=== PATIENT | male | born 1960 | race Caucasian/White ===

== ENCOUNTER 2017-02-28 13:52 | Emergency (ER) | payer MEDICARE, OTHER ==
[~2017-02-28] VITALS: Ht 180.3 cm; Wt 113.6 kg
[2017-02-28 13:57] VITALS: BP 129/73; PULSE 60; RESP 20; O2SAT 99
[2017-03-01] MEDS ORDERED: OXYC1TAB24 PO (14:55)
== END 2017-02-28 15:26 | disposition left against medical advice (07) ==
LOC: SED 13:52
DX: M54.5 Low back pain (principal); Z53.21 Procedure and treatment not carried out due to patient leaving prior to being seen by health care provider

== ENCOUNTER 2017-03-01 12:08 | Emergency (ER) | payer MEDICARE, OTHER ==
[~2017-03-01] VITALS: Ht 180.3 cm; Wt 113.6 kg
[2017-03-01 12:16] VITALS: BP 131/81; PULSE 65; RESP 16; O2SAT 98
--- NOTE | 2017-03-01 12:27 | ED.REPORT ---
HPI-Back Pain 40 and Over Date of Service Mar 01, 2017 ED Provider: History of Present Illness: 56-year-old male here for back pain. 3 days ago patient fell off his deck that was approximately 5 feet high. He landed on his left hip/left low back. Patient has had back pain since then. Patient has a history of sciatica on the left side, left flare up 1 month ago. Pain feels similar to his sciatica. It radiates down his left leg. Denies numbness or tingling. One month ago he went to [facility] emergency room and they gave him a prescription for oxycodone and Dilaudid in the emergency room. Denies loss of bowel and bladder. Patient has been walking since the fall. His baseline pain as a 4 out of 10, his current pain is 7 out of 10 Nursing Notes Stated Complaint: FELL OFF DECK,BACK AND LEG PAIN Chief Complaint: Back Pain or Injury Nursing Notes Reviewed: Yes Allergies: Coded Allergies: No Known Allergies (Unverified , 02/28/17) Scheduled PRN oxyCODONE-Acetaminophen 5-325 mg (oxyCODONE-Acetaminophen 5-325 mg) 1 Each Tablet 1 TAB PO Q6H PRN PRN For Pain General Time Seen by MD: 12:27 Chief Complaint Lumbar pain Hx Obtained From: Patient Arrived By: Walk-in Sudden in Onset?: Yes Onset Occurred: 3 days ago Symptom Duration: Constant Caused by: Fall from height (5) Location: : Spinal lumbar area Quality: Burning Radiation: : Left leg above knee: Left leg below knee Severity: Current: Pain level 7 out of 10 Severity: Maximum: Pain level 7 out of 10 Recent Healthcare: Recent doctor visit Similar Sx Previous: Yes Past Medical History Past Medical History Notes: sciatica, HTN, GERD Review of Systems Constitutional: Denies: Fever Cardiovascular: Denies: Chest pain GI: Denies: Abdominal pain Male: Denies Dysuria, Denies Flank pain Musculoskeletal: Reports: Back pain, Extremity pain Physical Exam Physical Exam Notes: Patient appears a bit slow to speak, potentially intoxicated. No smell of alcohol on his breath. Patient admits to smoking marijuana earlier this morning Initial Vital Signs Vital Signs (First) Date Time Temp Pulse Resp B/P Pulse Ox O2 Delivery O2 Flow Rate FiO2 03/01/17 12:16 36.7 65 16 131/81 98 Room Air Initial VS: Reviewed, Vital signs normal General/Constitutional: Awake, Alert Respiratory / Chest: Breath sounds NL, Breath sounds = bilat, No respiratory distress, No rales, No rhonchi, No wheezing Cardiovascular: Heart rate NL, Regular rhythm, Heart sounds NL, No murmurs, Peripheral circulation NL Abdomen: Soft, Non-tender, No guarding, No rebound, No distention, No palpable mass, No pulsatile mass Back: Atraumatic Flank / Spine / Paraspinal: Positive: Lumbar paraspinal tend... (Mid), Lumbar spine tender... (Mid) Straight Leg Raise: Positive: Strt leg raise + L 10 deg, Strt leg raise + R 10 deg Significant left lower back tenderness. Ordered bend only about 20. Reduced range of motion with twisting side to side. Patient can move around the gurney although with a grimace on his face. Patellar reflexes 3+ brisk and intact and equal. Bilateral lower extremity strength is equal and strong. Interpretation & Diagnostics Lab Results Interpretation Test 03/01/17 13:48 Urine Opiates Screen Negative Urine Methadone Screen Negative Urine Barbiturates Screen Negative Urine Amphetamines Screen Negative Urine Benzodiazepines Screen Positive Urine Cocaine Metabolite Screen Negative Urine Cannabinoids Screen Positive X-Ray Interpretation Xray Interpretation: PROCEDURE: X-RAY LUMBAR SPINE, 2 OR 3 VIEW INDICATIONS: fall, low back pain TECHNIQUE: 3 views of the lumbar spine were acquired. COMPARISON: None. FINDINGS: Bones: 5 [id number] vertebrae are present. There is mild dextroscoliotic bony alignment centered at L2-3. No definite acute vertebral body compression fractures but there is a mild anterior wedging of T12, likely chronic. No suspicious bony lesions. Moderate disc height reduction is present at L4-5, moderately severe facet osteoarthritis is present from L3 inferiorly, with associated grade 1 anterolisthesis of L5 on S1. Soft tissues: Overlying bowel gas pattern is normal. No suspicious soft tissue calcifications. IMPRESSION: Degenerative changes but no definite acute disease. MR scanning may be warranted given the severity of degeneration and likelihood of spinal and foraminal stenosis. Re-Eval/Medical Decision Med Decision/Clinical Course pain med rx from Frederick Angel DMD 20 on 02/17, 20 on 02/21. PCP Nahed Mack rx clonazepam 1mg 120 on 02/22 120 percocet 120 oxycodone 01/07/17 1 mg Dilaudid IM's pains down to 7 out of 10. He presents requesting more meds. We will do Percocet for home, #7 Discharge & Departure Shift Change Sign-Out Procedures: Results discussed Response to Therapy: Improved Impression: Primary Impression: Lumbosacral strain Encounter type: initial encounter Qualified Code: S39.012A - Strain of muscle, fascia and tendon of lower back, initial encounter Additional Impression: Sciatica of left side Disposition: Home Discharge Condition All VS Reviewed: Yes Condition: Stable Patient Instructions: Sciatica (ED) Additional Instructions: Take ibuprofen 600 mg 2 times a day and Tylenol 1 g 3 times a day for pain. Use Percocet for severe pain do not exceed 1 g of acetaminophen every 8 hours. Rest, frequent changing positions, apply ice and heat to area alternating. Follow up with your PCP as scheduled. Return to ER if severe pain, fevers, lower extremity weakness or loss of bowel or bladder Referrals: NOPCP (PCP) [facility] Nahed Mack MD EDSupervising Provider for APC: Finn Crocker MD, Linnea K ARNP Mar 01, 2017 12:27
--- NOTE | 2017-03-01 13:25 | DRSVH ---
PROCEDURE: X-RAY LUMBAR SPINE, 2 OR 3 VIEW INDICATIONS: fall, low back pain TECHNIQUE: 3 views of the lumbar spine were acquired. COMPARISON: None. FINDINGS: Bones: 5 [id number] vertebrae are present. There is mild dextroscoliotic bony alignment centere d at L2-3. No definite acute vertebral body compression fractures but there is a mild anterior wedgi ng of T12, likely chronic. No suspicious bony lesions. Moderate disc height reduction is present at L4-5, moderately severe facet osteoarthritis is present from L3 inferiorly, with associated grade 1 anterolisthesis of L5 on S1. Soft tissues: Overlying bowel gas pattern is normal. No suspicious soft tissue calcifications. IMPRESSION: Degenerative changes but no definite acute disease. MR scanning may be warranted given t he severity of degeneration and likelihood of spinal and foraminal stenosis. Dictated by: Geraldo Meza M.D. on 03/01/2017 at 13:22 Approved by: Geraldo Meza M.D. on 03/01/2017 at 13:23
[2017-03-01] MEDS ORDERED: HYDROmorphone 1 mg/mL Inj IM ONE (14:25)
[2017-03-01] MEDS ORDERED: OXYC1TAB24 PO (14:55)
== END 2017-03-01 14:56 | disposition home or self-care (01) ==
LOC: SED 12:08
DX: S39.012A Strain of muscle, fascia and tendon of lower back, initial encounter (principal); M54.32 Sciatica, left side; W17.89XA Other fall from one level to another, initial encounter; Y93.89 Activity, other specified; Y92.018 Other place in single-family (private) house as the place of occurrence of the external cause; Y99.8 Other external cause status; I10 Essential (primary) hypertension; K21.9 Gastro-esophageal reflux disease without esophagitis
CPT/HCPCS: 72100; 96372; 99284; G0480; J1170; J1885

== ENCOUNTER 2017-03-05 10:15 | Observation (INO) | payer MEDICARE, OTHER ==
[~2017-03-05] VITALS: Ht 180.3 cm; Wt 109.9 kg
[2017-03-05] VITALS (9 sets, daily range): BP systolic 109–128; BP diastolic 61–69; PULSE 51–60; RESP 12–20; O2SAT 95–98
[~2017-03-05 10:15] MED LIST: OXYC1TAB24 PO
--- NOTE | 2017-03-05 10:24 | ED.REPORT ---
HPI-Chest Pain 40 and Over Date of Service Mar 05, 2017 ED Provider: Dr. Hanna Pt is a 56 y/o male w/ a hx of HTN, HLD, GERD, presenting to the ED c/o non- radiating chest tightness onset last night at 20:00 while he was lying in bed. He c/o associated lightheadedness, generalized weakness, nausea, diarrhea x1 episode, myalgia, mild LUE numbness, bilateral leg pain for 1 week. Pt denies vomiting, diaphoresis. The intensity of his pain waxes and wanes but it remains persistent. He states sitting up exacerbates his pain and lying still relieves it. It is rated 8/10 right now and maximum 10/10. He had a pharmacological stress test at least 5 years ago which was reportedly normal. He has a family history of cardiac disease at about age 50. He smokes 0.5 ppd and denies alcohol. There is no history of PE or DVT, GI bleed. The patient does not take aspirin. Nursing Notes Stated Complaint: TIGHTENING CHEST PAIN,LIGHT HEADED,PAIN/WEAKNESS Chief Complaint: Chest Pain Nursing Notes Reviewed: Yes (Validas not reconciled) Allergies: Coded Allergies: No Known Allergies (Unverified , 02/28/17) Scheduled PRN oxyCODONE-Acetaminophen 5-325 mg (oxyCODONE-Acetaminophen 5-325 mg) 1 Each Tablet 1 TAB PO Q6H PRN PRN For Pain General Time Seen by MD: 10:23 Chief Complaint Chest pressure Hx Obtained From: Patient Arrived By: Walk-in Sudden in Onset?: No Onset Occurred: 9 - 12 hours ago Symptom Duration: Since onset Location: : Substernal Quality: Pressure Radiation: : Does not radiate Severity: Current: Pain level 8 out of 10 Severity: Maximum: Pain level 10 out of 10 Past Medical History Past Medical History Hypertension Hyperlipidemia GERD Anxiety History of sciatica (on opiates) Past Surgical History Bilateral inguinal hernia repair ~2000 Smoking History Current Every Day Smoker Social History Alcohol Use: Denies alcohol use Ambulatory Status Independent Review of Systems Constitutional: Reports: Weakness - generalized, Denies: Chills, Fever Cardiovascular: Reports: Chest pain GI: Reports: Diarrhea, Nausea, Denies: Vomiting Musculoskeletal: Reports: Extremity pain, Myalgia Skin: Denies Diaphoresis Neurologic: Reports: Lightheaded, Numbness, Denies: Focal weakness Complete sys rev & neg: except as marked. Physical Exam Initial Vital Signs Vital Signs (First) Date Time Temp Pulse Resp B/P Pulse Ox O2 Delivery O2 Flow Rate FiO2 03/05/17 10:17 36.6 60 12 128/68 97 Room Air Initial VS: Reviewed, Vital signs normal Head / Eyes: Atraumatic, Normocephalic, PERRL ENT: Mucous membranes moist, Conjunctiva normal, No scleral icterus Neck: Supple, Full range of motion Extremities: Vascular intact, Neuro intact, No swelling Skin: Warm, Dry, No cyanosis Neurologic: Alert, Oriented, Nonfocal Psychiatric: Mood/affect normal, Behavior normal, Normal thought content General/Constitutional: Awake, Alert, No acute distress, Cooperative, Not toxic appearing Respiratory / Chest: Breath sounds NL, Breath sounds = bilat, No respiratory distress, No rales, No rhonchi, No wheezing Cardiovascular: Heart rate NL, Regular rhythm, Heart sounds NL, No murmurs, Peripheral circulation NL Abdomen: Atraumatic, Soft, Non-tender, No guarding, No rebound, No distention, No palpable mass Interpretation & Diagnostics Lab Results Interpretation Result Diagram: 03/05/17 1111 03/05/17 1111 Test 03/05/17 11:11 03/05/17 13:24 White Blood Count 7.5th/mm3 (3.8-10.1) Red Blood Count 4.43mil/mm3 (4.40-5.80) Hemoglobin 14.2g/dL (13.8-17.2) Hematocrit 39.9% (41.0-50.0) Mean Corpuscular Volume 90.1fL (81-100) Mean Corpuscular Hemoglobin 32.1pg (27.0-35.0) Mean Corpuscular Hemoglobin Concent 35.6% (32.0-37.0) Red Cell Distribution Width 12.2% (12.3-15.4) Platelet Count 321bil/L (150-400) Neutrophils (%) (Auto) 64.4% (40-74) Lymphocytes (%) (Auto) 26.5% (14-46) Monocytes (%) (Auto) 7.0% (4-12) Eosinophils (%) (Auto) 1.7% (0-5) Basophils (%) (Auto) 0.3% (0-3) Sodium Level 131mEq/L (134-144) Potassium Level 3.0mEq/L (3.5-5.2) Chloride Level 88mEq/L (97-108) Carbon Dioxide Level 28mmol/L (18-29) Blood Urea Nitrogen 5mg/dL (6-24) Creatinine 0.77mg/dL (0.76-1.27) Estimat Glomerular Filtration Rate 112mL/min (>59) Glucose Level 127mg/dL (60-99) Calcium Level 9.2mg/dL (8.5-10.1) Magnesium Level 1.5mg/dL (1.6-2.6) Total Bilirubin 0.4mg/dL (0.0-1.2) Aspartate Amino Transf (AST/SGOT) 12U/L (0-50) Alanine Aminotransferase (ALT/SGPT) 15U/L (0-44) Alkaline Phosphatase 102U/L (25-150) Total Protein 7.1g/dL (6.4-8.4) Albumin 4.1g/dL (3.4-5.0) Lipase 17U/L (13-60) Hold Champion Top Tube Received (Received) Troponin T < 0.010ug/L (0.0-0.011) Lab Results Interpretation: CBC normal Same pain positive hypokalemia, mild hypomagnesemia Troponin #1 negative #2 negative ECG Interpretation ECG Interpretation: Sinus bradycardia rate 57 Nonspecific T wave flattening and inversion anterolaterally No prior available for comparison Time: 10:49 Interpreted by: ED physician Normal ECG Interpretation: No acute ischemic changes ECG Interpretation: Sinus rhythm rate 52 Nonspecific T wave flattening and inversion anterolaterally Same as prior earlier today Computer is over-reading QT interval prolongation, none to my eyes Time: 14:09 Interpreted by: ED physician Normal ECG Interpretation: No acute ischemic changes, No change from prior ECGs X-Ray Chest Interpretation Chest Xray Interpretation: IMPRESSION: No acute disease Dictated by: Gary Gray M.D. on 03/05/2017 at 11:34 Approved by: Gary Gray M.D. on 03/05/2017 at 11:36 View: Portable, 1 view Interpretation / Wet Read by: Interpret - Radiologist Re-Eval/Medical Decision Med Decision/Clinical Course This is a 56-year-old male who is a smoker, with high blood pressure, high cholesterol, and an extensive family history of heart disease who presents complaining of chest discomfort and tightness started last demise been waxing and waning. It is no pleuritic component. He has no risk factors for DVT/PE. He does report he has had a pharmacological stress test-as he reports he cannot exercise much secondary to his sciatica-but it was more than 10 years ago. The patient clinically appears well, is not diaphoretic and has no findings of heart failure on clinical exam. He also does not have clinical findings of venous thromboembolism. His EKG is T wave flattening, but no acute specific findings. Chest x-ray is normal. Blood work is normal. The patient received aspirin, Nitropaste, and supplied with marked improvement. However his calculated heart score is 4 which is moderate risk, so the plan is observation admission. The patient is also mild hypokalemia, mild hypomagnesemia and received initial potassium and magnesium supplementation in the department. Case discussed with the hospitalist. Source of Hx: Old records Time of Eval: 14:33 Re-Evaluation/Progress Note: Pt rechecked. Informed pt of need for admission for cardiac workup. Pt understands and agrees with plan for admission. All questions addressed. Consultation : Referral / Consult Name: Babak Russo MD Consulted With: Hospitalist Call Returned at: 14:49 Instrument And Control Technician: Will see patient, Agrees with eval, Agrees with plan, Accepts admit Differential Diagnosis: Positive: Chest pain, acute, Negative: Dysrhythmia, Gun shot wound chest, Pneumonia, Pneumothorax, Pulmonary edema, Pulmonary embolism, Stab wound chest Counseled Regarding: Diagnosis, Lab results, Need for admission Discharge & Departure Primary Impression: Chest pain Chest pain type: unspecified Qualified Code: R07.9 - Chest pain, unspecified Additional Impressions: Abnormal EKG Hypokalemia Hypomagnesemia Disposition: ADMITTED TO HOSPITAL Discharge Condition All VS Reviewed: Yes Condition: Improved Referrals: [facility] Scribe Attestation Portions of this note were transcribed by Michael Coleman. I, Dr. Hanna personally performed the history, physical exam and medical decision-making; I reviewed and confirmed the accuracy of the information in the transcribed note. Ayden Hanna MD Mar 05, 2017 10:24 MICHAEL COLEMAN Mar 05, 2017 10:32
[2017-03-05] MEDS ORDERED: Ondansetron 2 mg/mL 2 mL Inj IVPUSH ONE (10:45)
[2017-03-05 11:20] LABS: BASOPHILS % (AUTO) 0.3 % (0-3); EOSINOPHILS % (AUTO) 1.7 % (0-5); Mean Corpuscular Hemoglobin 32.1 pg (27.0-35.0); Mean Corpuscular Volume 90.1 fL (81-100); NEUTROPHILS % (AUTO) 64.4 % (40-74); Platelet Count 321 bil/L (150-400)
[2017-03-05] MEDS ORDERED: Ondansetron 8 mg ODT Tablet PO ONE (11:25)
--- NOTE | 2017-03-05 11:38 | DRSVH ---
PROCEDURE: X-RAY CHEST ONE VIEW, PORTABLE ([id number]) INDICATIONS: CP TECHNIQUE: One view of the chest was acquired. COMPARISON: None. FINDINGS: Surgical changes and devices: None. Lungs and pleura: No pleural effusions or pneumothorax. Lungs are clear. Lung volumes are decrease d. Mediastinum: Mediastinal contours appear normal. Heart size is normal. Bones and chest wall: No suspicious bony lesions. Overlying soft tissues appear unremarkable. IMPRESSION: No acute disease Dictated by: Gary Gray M.D. on 03/05/2017 at 11:34 Approved by: Gary Gray M.D. on 03/05/2017 at 11:36
[2017-03-05 11:59] LABS: TROPONIN T 0.01 ug/L (0.0-0.011)
[2017-03-05] MEDS: HYDROmorphone 0.5 mg/0.5 mL iSecure Syringe IVPUSH PRN ×3 (12:07→16:15)
[2017-03-05 12:10] LABS: Magnesium 1.5 mg/dL (1.6-2.6)
[2017-03-05] MEDS ORDERED: Magnesium Sulf 2 Gm/50mL Water 2 GM in IV Premix 1 EACH IV ONE (12:20)
[2017-03-05] MEDS ORDERED: Potassium Chloride 20 mEq SR Tablet PO ONE (12:20)
[2017-03-05] MEDS ORDERED: Nitroglycerin 2% 1 Gm Ointment TOPICAL SCH (14:35)
[2017-03-05] MEDS ORDERED: HYDROmorphone 1 mg/mL Inj IVPUSH ONE (14:35)
[2017-03-05] MEDS ORDERED: HYDROcodone-APAP 5-325 mg Tablet PO PRN (14:50)
--- NOTE | 2017-03-05 16:30 | NUR ---
Admit Pt arrived on unit from ED alert and oriented X4. LARSON. VS WNL. Pt c/o 12/15 "chest tightness" unrelieved by 0.5mg of Dilaudid given right before transfer. Administered 10mg Jet and will reassess. Med rec completed and MD notified to review patients pain, anx and depression medications. Pt asked this RN to removed nitro paste placed in the ER d/t worsening headache. Pt c/o of mild dizziness and stated that he had diarrhea earlier today. Enteric precautions in place and stool pcr ordered by MD. Nicotine patch placed on left shoulder.
--- NOTE | 2017-03-05 16:37 | PCM.HPMED ---
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 pt was USOH until 8pm last night, pt had regular dinner and was sleeping. suddenly noticed acute severe pressure like chest pain, which woke him up. pt also noticed tingling on three digits of his left hands, 3-5th. no radiation go jaw, back, arms. pt also felt dizzy, and hard to breath. pt check his BP noted 160s, therefor took his meds: Ziac and clonidine, chest pain continued for 2hours and subsided but not entirely. pt also had one episode of diarrhea with intermittent cramps. Pt went to bed around 1am, repeat BP was around 90s. Pt didn't think lowering BP helped ease her chest pain. Pt had intermittent low grade chest pain throughout the night until this AM, decided to come to hospital. pt denied having similar chest pain in the past, had stabbing like pain so had stress test done by PCP 5yrs ago, reportedly normal. pt has significant FHx of premature CAD, father and grandfather had heart attack in their 50s. ED VS 128/68, 60, 12, EKG showed flattened twaves diffusely, no prior EKG to compare, no st/t chg. Labs showed tropx2 negative. otherwise unremarkable. currently pt has chest pain 3/10, dialudid and nitro past eased his pain, denied n/v, abdominal cramps. no dizziness, diaphoresis. Review of Systems: Pertinent positives as noted in history of present illness. All other systems were reviewed and are negative Allergies Coded Allergies: No Known Allergies (Unverified , 02/28/17) Home Medications clonidine 0.1mg qid clonazepam 1mg qid meloxicam for back pain Ziac 10/6.25 qd PMH As described above in history of present illness Surgical History Hernia repair Shoulder and knee surgery Family History Father and grandfather had heart attack in 50s Social History Hx Alcohol Use: No Hx Substance Use: Yes (marijuana) Smoking Status: Current Every Day Smoker Exam Vital Signs Vital Sign - Last Date Time Temp Pulse Resp B/P Pulse Ox O2 Delivery O2 Flow Rate FiO2 03/05/17 13:37 36.7 53 17 117/61 98 Room Air Exam NAD, comfortably laying down on the bed no JVD, MMM, no LAD RRR, nl s1, s2 no mrg CTAB, no w,c S,ND,NT,normoactive BS+ warm, no edema, pulses 2/2 Lab and Diagnostics Result Diagram: 03/05/17 1111 03/05/17 1111 Assessment & Plan Acute, active Sudden onset chest pain, POA, EKG did not show ischemic changes, trops are already negative 2. unlikely angina, possible panic attack likely episode given stress, underlying anxiety d/o. However, given premature FHx, active smoking, HTN, HLD, pt has moderate to high risks of ACS. pt was loaded with aspirin in ED -will trend tropx2, -nitro SL for chest pain, -will continue aspirin 81mg daily, metoprolol 25mg bid, no statin given intolerability -stress test ordered for risk stratification one episode of diarrhea, electrolytes imbalance, POA, repleted K,Mg in ED, -trending CMP, replete K,Mg as needed, get stool samples if further diarrhea Chronic, stable chronic lumbar DJD, pt was seen by pain specialist, had multiple injection but didn't improve his pain much, currently on disability, tried percocet in the past, "asked for dilaudid", unclear pt has drug seeking habit, will monitor closely. HTN, hold off home BP med HLD, pt cannot tolerate stains, continue diet control, get lipid panel active tobacco dependence, ordered nicotine patch anxiety d/o, will continue clonidine, clonazepam once med rec done. Dispo: Patient is admitted under observation status with expectation that she will be discharged within 24-48 hours, diet:general dvt ppx:HSQ DNR,DNI confirmed with patient PCP: scheduled in [facility] clinic 03/18, needs new PCP Time spent 65 minutes Babak Russo MD Mar 05, 2017 14:51
[2017-03-05] MEDS ORDERED: KLO1T PO (17:16)
[2017-03-05] MEDS ORDERED: BISO1TAB7 PO (17:16)
[2017-03-05] MEDS ORDERED: OMEP40CA36 PO (17:16)
[2017-03-05] MEDS ORDERED: OXYC-466 PO (17:16)
[2017-03-05] MEDS ORDERED: SERT100T9 PO (17:16)
[2017-03-05] MEDS ORDERED: MELO-259 PO (17:16)
[2017-03-05] MEDS ORDERED: CLON0.1T PO (17:16)
--- NOTE | 2017-03-05 18:12 | NUR ---
PETER explained and signed. Copy of PETER and Medicare self administered medication information given to pt.
--- NOTE | 2017-03-05 18:25 | NUR ---
Assumed care This RN assumed care of pt at 1610. Pt sitting up in bed, eating dinner with no c/o or indicators of pain/distress. Per report, Nitro patch dc'd at 1630. Bed in lowest, locked position and call light in reach.
[2017-03-05] MEDS ORDERED: oxyCODONE-Acetamin 5-325 mg Tablet PO PRN (19:00)
[2017-03-05] MEDS: cloNIDine 0.1 mg Tablet PO SCH (20:50)
[2017-03-05] MEDS ORDERED: Isosorbide Mononitrate 30 mg ER24 Tablet PO ONE (21:30)
[2017-03-05] MEDS ORDERED: Donnatal-Lido-Mylant 1:1:1 15 mL Syringe PO PRN (21:35)
[2017-03-05] MEDS ORDERED: LidocaineVisc 2%:Antacid 1:1 10 mL Syringe PO PRN (21:40)
--- NOTE | 2017-03-05 23:00 | NUR ---
Chest Pressure Around 2049, Pt c/o chest pressure 8/10, as well as generalized pain,maxx on back, pt states chest pressure constantly since admission, 10/10 on admission, lowest level 3/10, no radiation,sometimes triggered by exertion,sometimes occurs when rest, with some SOB and heart burn, chest pressure does not radiate, denies diaphoresis, or nausea, vomiting. BP115/68 HR 54. Charge nurse informed, Stat EKG ordered, report "Sinus Rhythm, HR 55, Prolonged QT". Dr. Davy pineda, EKG report informed to MD. O2 1l used, pt informed bedrest at this time. Plan to given Nitro SL. Pt states unable to tolerated Nitroglycerin SL or Oint due to causing pounding headache. Morphine given 1mgx2, " take the edge" of the chest pressure and SOB. Imdur ER (MD informed pt scheduled stress test tomorrow, ok to use Imdur) and GI Cocktail ordered and administered, chest pressure and generalized pain down to 5-6/10, offer pt [place] for additional symptoms control, pt declines due to [place] "did not do anything". Pt would like to wait for Morphine q4h prn next time due around 99. Continue monitoring closely. Addendum: 03/06/17 at 0538 by RAEANN NOVA RN Pt wake up c/o chest pressure and back pain 02/14, Percocet (10) given 1 hr ago,symptoms "has not improved yet", c/o nausea. Dr Davy pineda at 0535, Reglan 5mg IV ordered will administer now,as well as administer Morphine. Addendum: 03/06/17 at 0552 by RAEANN NOVA RN Despite pt c/o constant chest pressure, he does not appears at acute distress, he appears at ease,relaxing, and joke with VICKIE.
[2017-03-06 00:21] VITALS: BP 105/65; PULSE 54; RESP 16; O2SAT 95
[2017-03-06] MEDS: oxyCODONE-Acetamin 10-325 mg Tablet PO PRN ×3 (04:47→15:17)
[2017-03-06] MEDS ORDERED: MetoCLOpramide 5 mg/mL 2 mL Inj IVPUSH PRN (05:30)
[2017-03-06 05:37] VITALS: PULSE 57
[2017-03-06] MEDS: cloNIDine 0.1 mg Tablet PO SCH ×3 (05:48→15:13)
[2017-03-06 06:32] VITALS: BP 108/64; PULSE 51; RESP 16; O2SAT 94
[2017-03-06 09:02] VITALS: PULSE 57
[2017-03-06 10:25] LABS: Magnesium 1.9 mg/dL (1.6-2.6)
[2017-03-06] MEDS ORDERED: Pantoprazole 40 mg ER24 Tablet PO SCH (10:25)
[2017-03-06 10:40] VITALS: BP 111/67; PULSE 51; RESP 16; O2SAT 94
[2017-03-06] MEDS ORDERED: Magnesium Sulf 2 Gm/50mL Water 2 GM in IV Premix 1 EACH IV ONE (11:15)
[2017-03-06] MEDS ORDERED: Potassium Chloride 20 mEq SR Tablet PO ONE (11:15)
--- NOTE | 2017-03-06 11:44 | NUR ---
Stress Test : Patient went down stairs for his stress test at 1135. Patients Metoprolol was held before the test per MD. Patient c/o mild chest presure this morning . Patient stated that his back is hurting . Prn Pain med given with good reliev.
--- NOTE | 2017-03-06 11:52 | NUR ---
Social Work-initial assessment/readiness for discharge: Data:See initial assessment. Pt is a 56 y/o male who was admitted on 03/05/17 for chest pain per H&P. Pt's insurance is [employer] and [employer] and PCP is not listed. EMR Reviewed. KAYLA met with pt at bedside, SW role explained. Pt is alert and oriented x3. Pt resides at home with his in [place] where he remains independent with ADLS. Pt drives and does use a fww at baseline. Pt has no HH or SNF history. Pt has no penitentiary care insurance or VA benefits. SW discussed DPOA/ advanced directive, pt confirms he has not completed this and is declining any information. 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 Pt has been up independent in his room. SW provided pt with a copy of the discharge planning checklist booklet and encouraged pt to call with any questions, phone number provided. pt's parents to provide transport home. No anticipated discharge needs. SW will continue to follow if needs arise. Assessment:pt who is independent at baseline. Plan:Pt to discharge home when medically stable via POV. No anticipated discharge needs. SW will continue to follow if needs arise. BOOM Francois Addendum: 03/06/17 at 1157 by DELFINA BORREGO SS Amended: Links added.
[2017-03-06 13:13] VITALS: BP 114/69; PULSE 58; RESP 15; O2SAT 98
[2017-03-06] MEDS ORDERED: OXYC-466 PO (15:44)
[2017-03-06] MEDS ORDERED: OMEP40CA36 PO (15:44)
[2017-03-06] MEDS ORDERED: NAPR500T5 PO (15:44)
--- NOTE | 2017-03-06 15:47 | PCM.DIMED ---
Discharge Instructions Date of Service Mar 06, 2017 Dates of Hospitalization Mar 05, 2017 at 15:27 Discharge Diagnosis Discharge Diagnosis Chest pain, likely musculoskeletal Medication Instructions Additional med instructions please take Naproxen 500mg twice a day and Omeprazole 40mg daily you can also take Percocet in case your pain is severe. Diet Discharge Diet: No restrictions, Low fat, Low Sodium Activity Discharge Activity: No restrictions Call your provider Call your provider for: Chest pain Patient Instructions Patient Instructions You were hospitalized with chest pain, initially concerning for chest pain. You were monitored closely, however, all of the evidence showed it's unlikely heart related, likely related to your muscle or rib cage pain from mild inflammation. Please follow up with your primary doctor in 03/18 as scheduled. Follow-up Provider: [facility] Follow-up with PCP in: 1 week Babak Russo MD Mar 06, 2017 15:47
--- NOTE | 2017-03-06 16:00 | NUR ---
Social Work-discharge: Data:EMR reviewed. Pt is on day 1 of hospitalization for chest pain per H&P. Pt is medically stable for discharge. Pt has been up independent in his room. Pt's family to provide transport home. No discharge needs identified. All updated and agreeable to plan. Assessment:Pt who is independent at baseline. Plan:Pt to discharge home today via POV. No discharge needs identified. All updated and agreeable to plan. BOOM Francois
--- NOTE | 2017-03-06 17:06 | PCM.DC.MED ---
Discharge Summary Date of Service Mar 06, 2017 Dates of Hospitalization Date of Hospital Admission Mar 05, 2017 at 15:27 Date of Discharge: Mar 06, 2017 Providers: Admitting Physician: Babak Mustafa MD Primary Care Physician: Jennifer Attending Physician: Babak Mustafa MD Diagnosis at Time of Discharge Diagnosis at Time of Discharge Acute dx Chest pain, likely musculoskeletal, possible malingering One episode of diarrhea, nonspecific Chronic lumbar DJD, Opioid dependence Chronic dx HTN, HLD, active tobacco dependence anxiety d/o, Brief History 56 yo M w/ active smoker, HTN, HLD-diet controlled, anxiety d/o, chronic back due to DJD on disability p/w sudden onset of chest pain. pt was USOH until 8pm last night, pt had regular dinner and was sleeping. suddenly noticed acute severe pressure like chest pain, which woke him up. pt also noticed tingling on three digits of his left hands, 3-5th. no radiation go jaw, back, arms. pt also felt dizzy, and hard to breath. pt check his BP noted 160s, therefor took his meds: Ziac and clonidine, chest pain continued for 2hours and subsided but not entirely. pt also had one episode of diarrhea with intermittent cramps. Pt went to bed around 1am, repeat BP was around 90s. Pt didn't think lowering BP helped ease her chest pain. Pt had intermittent low grade chest pain throughout the night until this AM, decided to come to hospital. pt denied having similar chest pain in the past, had stabbing like pain so had stress test done by PCP 5yrs ago, reportedly normal. pt has significant FHx of premature CAD, father and grandfather had heart attack in their 50s. ED VS 128/68, 60, 12, EKG showed flattened twaves diffusely, no prior EKG to compare, no st/t chg. Labs showed tropx2 negative. otherwise unremarkable. currently pt has chest pain 3/10, dialudid and nitro past eased his pain, denied n/v, abdominal cramps. no dizziness, diaphoresis. Hospital Course Acute dx Sudden onset chest pain, POA, EKG did not show acute ischemic changes, trops are already negative 2. unlikely angina, possible panic attack likely episode given stress, underlying anxiety d/o. However, given premature FHx, active smoking, HTN, HLD, pt has moderate to high risks of ACS. pt was loaded with aspirin in ED. pt was scheduled for stress test, but canceled per as does a low suspicion of ACS, later pt was found reproducible chest wall pain , could represent the chondritis, or muscular pain. Troponin was trended 4 times, remained negative. Although patient looked very comfortable throughout the hospitalization, requested Percocet high dosage to take care of his pain. Therefore does a suspicion of possible opiate dependence and drug-seeking behavior. It was also noted that patient is trying to establish care with new PCP. Plan was to continue Percocet as needed for severe pain, also to try naproxen 500 mg twice a day along with PPI. One episode of diarrhea, electrolytes imbalance, POA, repleted K,Mg in ED. Abdominal exam remained stable no further episode of diarrhea observed Chronic lumbar DJD, pt was seen by pain specialist, had multiple injection but didn't improve his pain much, currently on disability, tried percocet in the past, "asked for dilaudid", as described above,opioid dependence was suspected. Chronic, stable HTN, held off home BP med HLD, pt cannot tolerate stains, continue diet control, active tobacco dependence, ordered nicotine patch anxiety d/o, continued clonidine, clonazepam DNR,DNI confirmed with patient PCP: scheduled in [facility] clinic 03/18, needs new PCP Exam Vital Signs (Last) Date Time Temp Pulse Resp B/P Pulse Ox O2 Delivery O2 Flow Rate FiO2 03/06/17 13:13 36.5 58 15 114/69 98 Room Air 03/06/17 00:21 1.00 Exam Patient was examined on the day of discharge Test 03/05/17 11:11 03/05/17 14:44 03/06/17 05:30 White Blood Count 7.5th/mm3 (3.8-10.1) Red Blood Count 4.43mil/mm3 (4.40-5.80) Hemoglobin 14.2g/dL (13.8-17.2) Hematocrit 39.9% (41.0-50.0) Mean Corpuscular Volume 90.1fL (81-100) Mean Corpuscular Hemoglobin 32.1pg (27.0-35.0) Mean Corpuscular Hemoglobin Concent 35.6% (32.0-37.0) Red Cell Distribution Width 12.2% (12.3-15.4) Platelet Count 321bil/L (150-400) Neutrophils (%) (Auto) 64.4% (40-74) Lymphocytes (%) (Auto) 26.5% (14-46) Monocytes (%) (Auto) 7.0% (4-12) Eosinophils (%) (Auto) 1.7% (0-5) Basophils (%) (Auto) 0.3% (0-3) Chloride Level 88mEq/L (97-108) Carbon Dioxide Level 28mmol/L (18-29) Blood Urea Nitrogen 5mg/dL (6-24) Creatinine 0.77mg/dL (0.76-1.27) Estimat Glomerular Filtration Rate 112mL/min (>59) Glucose Level 127mg/dL (60-99) Calcium Level 9.2mg/dL (8.5-10.1) Total Bilirubin 0.4mg/dL (0.0-1.2) Aspartate Amino Transf (AST/SGOT) 12U/L (0-50) Alanine Aminotransferase (ALT/SGPT) 15U/L (0-44) Alkaline Phosphatase 102U/L (25-150) Total Protein 7.1g/dL (6.4-8.4) Albumin 4.1g/dL (3.4-5.0) Triglycerides Level 364mg/dL (0-149) Cholesterol Level 206mg/dL (100-199) LDL Cholesterol, Calculated 100.200mg/dL (0-99) VLDL Cholesterol 72.800mg/dL HDL Cholesterol 33mg/dL (>39) Cholesterol/HDL Ratio 6.24 (0.0-4.4) Lipase 17U/L (13-60) Hold Champion Top Tube Received (Received) Hold Urine Received (Received) Sodium Level 134mEq/L (134-144) Potassium Level 3.5mEq/L (3.5-5.2) Magnesium Level 1.9mg/dL (1.6-2.6) Troponin T 0.010ug/L (0.0-0.011) Discharge Medications Discharge Medications Clonazepam (Clonazepam) 1 Mg Tablet 1 MG PO QID (Reported) Clonidine (Clonidine) 0.1 Mg Tablet 0.1 MG PO QID (Reported) Meloxicam (Meloxicam) 7.5 Mg Tablet 7.5 MG PO BID (Reported) Omeprazole (Omeprazole) 40 Mg Capsule.dr 40 MG PO DAILY Prescribed by: BABAK MUSTAFA MD Sertraline HCl (Sertraline) 100 Mg Tablet 150 MG PO ONCE (Reported) As needed Naproxen (Naproxen) 500 Mg Tablet.dr 500 MG PO BID PRN PRN For Pain Prescribed by: BABAK MUSTAFA MD oxyCODONE-Acetaminophen 10-325 mg (oxyCODONE-Acetaminophen 10-325 mg) 1 Each Tablet 1 TABLET PO Q6H PRN PRN For Pain Prescribed by: BABAK MUSTAFA MD oxyCODONE-Acetaminophen 5-325 mg (oxyCODONE-Acetaminophen 5-325 mg) 1 Each Tablet 1 TAB PO Q6H PRN PRN For Pain Prescribed by: JESUS SUAREZ Miscellaneous Medications Bisoprolol Fumarate/HCTZ 10-6.25 mg (Bisoprolol Fumarate/HCTZ 10-6.25 mg) 1 Each Tablet PO (Reported) Additional med instructions please take Naproxen 500mg twice a day and Omeprazole 40mg daily you can also take Percocet in case your pain is severe. Followup Plan Disposition: Home Discharge Diet: No restrictions, Low fat, Low Sodium Discharge Activity: No restrictions Patient Instructions You were hospitalized with chest pain, initially concerning for chest pain. You were monitored closely, however, all of the evidence showed it's unlikely heart related, likely related to your muscle or rib cage pain from mild inflammation. Please follow up with your primary doctor in 03/18 as scheduled. Follow-up Provider: [facility] Follow-up with PCP in: 1 week Time spent 65 minutes Babak Mustafa MD Mar 06, 2017 17:06
--- NOTE | 2017-03-06 18:19 | DRSVH ---
[facility] [address] [place] [address] Echocardiogram Report Name: AARON MAKI Jayme e: 03/06/2017 Height: 71 in Hospital Exam Location: [facility] Weight: 242 lb Gender: Male BSA: 2.3 m2 : 1960 Age: 56 yrs BP: 108/64 mmHg Reason For Study: Chest pain History: HTN,SMOKER-CURRENT Ordering Physician: [facility] Interpretation Summary The left ventricle is normal in size. The ejection fraction is estimated to be 60-65%. There are no focal wall motion abnormalities. The right ventricle is normal in size and function. The right ventricular systolic pressure is estimated at 36 mmHg assuming a right atrial pressure of 3 mm Hg. The echocardiogram is within normal limits. No obvious cause for the patients chest pain is identified on this exam. Procedure: A two-dimensional transthoracic echocardiogram with color flow and Doppler was performed. There is no prior echocardiogram noted for this patient. The study quality was technically adequate. The patient was in sinus bradycardia with heart rates between 49-60 bpm during the exam. The patient had frequent PVCs during the exam. Left Ventricle: The left ventricle is normal in size. There is normal left ventricular wall thickness. A false chord is noted (normal variant). The ejection fraction is estimated to be 60-65%. There are no focal wall motion abnormalities. Assessment of diastolic parameters indicates normal left ventricular diastolic function and normal filling pressures. Right Ventricle: The right ventricle is normal in size and function. Atria: Both atria are normal in size. There is no Doppler evidence for an interatrial shunt. Mitral Valve: The mitral valve is normal in structure and function. There is no mitral regurgitation noted. Aortic Valve: The aortic valve is normal in structure and function. No aortic regurgitation is present. Tricuspid Valve: The tricuspid valve is normal in structure and function. There is a trace or physiologic amount of tricuspid regurgitation. The right ventricular systolic pressure is estimated at 36 mmHg assuming a right atrial pressure of 3 mm Hg. Pulmonic Valve: The pulmonic valve is not well seen, but is grossly normal. Great Vessels: The aortic root is normal size. The ascending aorta is at the upper limits of normal in size. The aortic arch is mildly enlarged. The IVC is of normal diameter and collapses greater than 50% with a sniff. This suggests a low right atrial pressure of 3 mm Hg. Pericardium/ Pleura There is no pericardial effusion. There is no pleural effusion. MMode/2D Measurements & Calculations LVIDd: 4.3 cm RA long axis LVOT diam: 2.3 cm LVIDs: 2.8 cm LA A2 area: 18.6 cm AoV Opening FS: 34.3 % LA A4 area: 19.2 cm RA area EPSS: 0.36 cm LA length (vol) Ao root diam IVSd: 1.2 cm : 18.1 cm LVPWd: 0.97 cm LA vol: 65.1 ml RA vol Aortic Jxn: 3.2 cm LA vol index : 57.2 ml asc Aorta Diam RA : 25.0 mm2 Ao Arch Diam (Prox IVC diam: 1.5 cm Trans): 3.5 cm LV cardona. diameter/BSA LV sys. diameter/BSA RVD1 (basal) RVD2 (mid): 3.6 cm (cm/m^2): 1.9 (cm/m^2): 1.2 TAPSE: 2.6 cm Doppler Measurements & Calculations Ao V2 max MV E max vasquez MV E/A: 0.95 TR max vasquez : 143.9 cm/sec : 81.7 cm/sec Med Peak E' Vasquez : 285.3 cm/sec Ao max PG MV A max vasquez TR max PG : 8.3 mmHg : 86.3 cm/sec E/E' med: 14.0 : 32.6 mmHg Ao mean PG MV P1/2t: 89.8 msec Lat Peak E' Vasquez PA V2 max : 67.3 cm/sec LVOT Max Vasquez E/E' lat: 13.0 PA mean PG : 101.0 cm/sec E/e' average : 0.89 mmHg PA Accel Time MARIPOSA(I,D): 3.2 cm : 0.12 sec sev ratio MV dec time MV P1/2t max vasquez Ao V2 mean LV V1 max PG : 0.30 sec : 85.9 cm/sec MVA(P1/2t): 2.5 cm2 Ao V2 VTI: 28.5 cmLV V1 VTI MARIPOSA(V,D): 2.9 cm2 : 22.2 cm PA V2 mean MARIPOSA indexed to BSA : 44.1 cm/sec (cm^2/m^2): 1.4 Reading Physician:06:18 PM
--- NOTE | 2017-03-06 18:45 | NUR ---
Discharge Nursing Note:] Patient was discharged to home at 1800. Patients IV was removed intact. His telemetry was discontinued. All of his discharge information was reviewed with him and his questions were answered to his satisfaction. Patient was escorted to the hospital lobby by nursing staff member and he was driven to home by his family member.
== END 2017-03-06 17:46 | disposition home or self-care (01) ==
LOC: SED 10:15 → MPC 15:27
PROVIDERS: ADMIT Internal Medicine; ATTEND Internal Medicine
DX: R07.9 Chest pain, unspecified (principal); R19.7 Diarrhea, unspecified; M47.816 Spondylosis without myelopathy or radiculopathy, lumbar region; F11.20 Opioid dependence, uncomplicated; I10 Essential (primary) hypertension; E78.5 Hyperlipidemia, unspecified; F41.9 Anxiety disorder, unspecified; K21.9 Gastro-esophageal reflux disease without esophagitis; E87.6 Hypokalemia; E83.42 Hypomagnesemia; F17.210 Nicotine dependence, cigarettes, uncomplicated; F12.90 Cannabis use, unspecified, uncomplicated; Z66 Do not resuscitate
CPT/HCPCS: 36415; 71010; 80053; 80061; 83690; 83735; 84132; 84295; 84484; 85025; 93005; 96374; 96375; 96376; 99285; C8929; G0378; J1170; J2270; J2765

== ENCOUNTER 2017-03-10 15:01 | Emergency (ER) | payer MEDICARE, OTHER ==
[~2017-03-10] VITALS: Ht 180.3 cm; Wt 109.1 kg
[~2017-03-10 15:01] MED LIST changes: +BISO1TAB7 PO; +CLON0.1T PO; +KLO1T PO; +MELO-259 PO; +NAPR500T5 PO; +OMEP40CA36 PO; +OXYC-466 PO; +SERT100T9 PO
[2017-03-10 15:03] VITALS: BP 152/84; PULSE 66; RESP 16; O2SAT 98
[2017-03-10] MEDS ORDERED: CLON0.1T PO (15:12)
--- NOTE | 2017-03-10 15:13 | ED.REPORT ---
HPI-Trauma Minor / Fall Date of Service Mar 10, 2017 ED Provider: Shashi Ren MD Patient is a 56 year old male with a history of hypertension and chronic back pain who presents to the ED complaining of chest pain onset 6 days ago. Associated symptoms include left leg pain, numbness and weakness which is not a new symptom. He denies incontinence, bladder or bowel dysfunction. Patient states that the pain is exacerbated with deep inhalation. The patient reports that he fell off of his deck 6 days ago and started having chest pain about three hours later. Patient states he fell on his left leg and side. The patient has taken Hydrocodone and Tylenol for pain. He was admitted to the hospital on and had an echo done that was unremarkable. Patient was discharged two days later. Nursing Notes Stated Complaint: FELL COUPLE DAYS, CHEST PRESSURE,BACK & LEFT LEG P Chief Complaint: Multiple Trauma/Fall Nursing Notes Reviewed: Yes Allergies: Coded Allergies: No Known Allergies (Unverified , 03/10/17) Scheduled Bisoprolol Fumarate/HCTZ 10-6.25 mg (Bisoprolol Fumarate/HCTZ 10-6.25 mg) 1 Each Tablet PO DAILY Clonazepam (Clonazepam) 1 Mg Tablet 1 MG PO QID Clonidine (Clonidine) 0.1 Mg Tablet 0.1 MG PO HS Meloxicam (Meloxicam) 7.5 Mg Tablet 7.5 MG PO BID Omeprazole (Omeprazole) 40 Mg Capsule.dr 40 MG PO DAILY Sertraline HCl (Sertraline) 100 Mg Tablet 150 MG PO DAILY Scheduled PRN oxyCODONE-Acetaminophen 10-325 mg (oxyCODONE-Acetaminophen 10-325 mg) 1 Each Tablet 1 TABLET PO Q6H PRN PRN For Pain General Time Seen by MD: 15:09 Chief Complaint Other (non-cardiac chest pain) Hx Obtained From: Patient Arrived By: Walk-in Onset Occurred: 6 days ago Symptom Duration: Since onset Caused by: Fall from height... (3-6 feet) Context: Occurred at: Home injury Location: Chest Leg left Quality: Painful, Pressure Severity: Current: Moderate Recent Healthcare: Recent doctor visit Similar Sx Previous: Yes Past Medical History Past Medical History Hypertension Hyperlipidemia GERD Anxiety History of sciatica (on opiates) Past Surgical History Bilateral inguinal hernia repair ~2000 Smoking History Current Every Day Smoker Social History Alcohol Use: Denies alcohol use Ambulatory Status Independent Review of Systems Musculoskeletal: Reports: Extremity pain Neurologic: Reports: Numbness, Weakness, Denies: Bladder dysfunction, Bowel dysfunction, Problem walking Complete sys rev & neg: except as marked. Cardiovascular: Reports: Chest pain Physical Exam Physical Exam Notes: patient does not seem satisfied when offered ibuprofen for pain Initial Vital Signs Vital Signs (First) Date Time Temp Pulse Resp B/P Pulse Ox O2 Delivery O2 Flow Rate FiO2 03/10/17 15:03 36.7 66 16 152/84 98 Room Air Initial VS: Reviewed General/Constitutional: Awake, Alert, No acute distress Neck: Atraumatic, Supple Head / Eyes: Atraumatic, Normocephalic, PERRL, EOMI Respiratory / Chest: Atraumatic, Breath sounds NL, Breath sounds = bilat, No respiratory distress anterior chest wall tenderness no crepitus Cardiovascular: Heart rate NL, Regular rhythm, Heart sounds NL, No gallop, No murmurs, No rubs Abdomen: Atraumatic, Soft, Non-tender, BS normoactive BACK: tenderness over T5, T6 Skin: Atraumatic, Color NL, No rash, Warm, Dry Neurologic: Oriented X3, Speech NL, No motor deficits, No sensory deficits Interpretation & Diagnostics Lab Results Interpretation Result Diagram: 03/10/17 1615 03/10/17 1615 Test 03/10/17 16:15 White Blood Count 8.1th/mm3 (3.8-10.1) Red Blood Count 4.31mil/mm3 (4.40-5.80) Hemoglobin 13.6g/dL (13.8-17.2) Hematocrit 39.8% (41.0-50.0) Mean Corpuscular Volume 92.3fL (81-100) Mean Corpuscular Hemoglobin 31.6pg (27.0-35.0) Mean Corpuscular Hemoglobin Concent 34.2% (32.0-37.0) Red Cell Distribution Width 12.4% (12.3-15.4) Platelet Count 258bil/L (150-400) Neutrophils (%) (Auto) 65.4% (40-74) Lymphocytes (%) (Auto) 26.3% (14-46) Monocytes (%) (Auto) 7.0% (4-12) Eosinophils (%) (Auto) 1.0% (0-5) Basophils (%) (Auto) 0.2% (0-3) Sodium Level 133mEq/L (134-144) Potassium Level 3.6mEq/L (3.5-5.2) Chloride Level 92mEq/L (97-108) Carbon Dioxide Level 26mmol/L (18-29) Blood Urea Nitrogen 5mg/dL (6-24) Creatinine 0.78mg/dL (0.76-1.27) Estimat Glomerular Filtration Rate 110mL/min (>59) Glucose Level 132mg/dL (60-99) Calcium Level 9.3mg/dL (8.5-10.1) Total Bilirubin 0.3mg/dL (0.0-1.2) Aspartate Amino Transf (AST/SGOT) 15U/L (0-50) Alanine Aminotransferase (ALT/SGPT) 19U/L (0-44) Alkaline Phosphatase 94U/L (25-150) Troponin T < 0.010ug/L (0.0-0.011) Total Protein 7.1g/dL (6.4-8.4) Albumin 3.9g/dL (3.4-5.0) Hold Champion Top Tube Received (Received) ECG Interpretation ECG Interpretation: probable left atrial enlargement no change from 03/05/17 Time: 15:34 Interpreted by: ED physician Normal ECG Interpretation: Normal rate (70), Normal sinus rhythm CT Chest Interpretation IMPRESSION: 1. No traumatic injuries to the thorax after fall. 2. 1.6 cm indeterminate hypodense right thyroid nodule. Recommend further characterization with non-emergent thyroid ultrasound, and correlation with thyroid function tests. Dictated by: Evin Avila M.D. on 03/10/2017 at 17:12 Approved by: Evin Avila M.D. on 03/10/2017 at 17:18 Interpretation / Wet Read by: Interpret - Radiologist Re-Eval/Medical Decision Med Decision/Clinical Course 56-year-old male complaining of left-sided chest pressure-like pain that he has had for almost a week. It began the night after 5 foot fall. He was recently admitted and ruled out for VT, for the same symptoms. He was discharged on oxycodone APAP which is now out of. The patient was clear that he was here for pain control. He has no visible signs of injury and narcotic CT imaging of the chest is reassuring. Recheck of ecg and troponin is also normal. He was complaining of leg pain in the left leg, this is something that he has had before it is related to a lumbar radiculopathy. No bowel or bladder control problems, ambulatory with a steady gait. Initially seemed displeased that he was not getting opiates during the emergency department visit. When told I was prescribing hydrocodone and a small quantity, he requested Lucan by name. I am concerned that prescribing opiates for this patient may ultimately not be good for him. I have shared this concern with him, nonetheless have agreed to prescribe a small quantity of Vicodin. Re-Evaluation/Progress : Time of Eval: 17:56 Re-Evaluation/Progress Note: Discussed CT, lab results and plan for discharge. Patient understands and agrees to plan. All questions were addressed. Counseled Regarding: Diagnosis, Lab results, Need for follow-up, When/why to return to ED Discharge & Departure Impression: Primary Impression: Chest pain Chest pain type: unspecified Qualified Code: R07.9 - Chest pain, unspecified Disposition: Home Discharge Condition All VS Reviewed: Yes Condition: Stable Patient Instructions: Noncardiac Chest Pain (ED) Additional Instructions: Your emergency department visit included an interview, examination, labs and CT scan. Your labs and CT scan were normal and reassuring. There was no evidence of broken ribs or trauma. A dangerous cause for your pain at this time was not identified. You can expect to be sore over the next few days and then start to improve. Ibuprofen 600mg 4 times a day with food. Take the Hydrocodone/apap every 6 hours as needed for severe pain. You can also trying icing to help with the pain. Follow up with your primary care physician. Return to the emergency department if you develop any new or concerning symptoms. Referrals: [facility] Nya Attestation Portions of this note were transcribed by Nicky Astorga. I, Dr. Ren personally performed the history, physical exam and medical decision-making; I reviewed and confirmed the accuracy of the information in the transcribed note. Signed by: Nya Basilio, 03/10/17 copies to: [facility] Shashi Ren MD Mar 10, 2017 15:13 Trinity Astorga Mar 10, 2017 15:23
[2017-03-10 15:49] VITALS: BP 136/81; PULSE 66; O2SAT 97
[2017-03-10 16:21] LABS: BASOPHILS % (AUTO) 0.2 % (0-3); Mean Corpuscular Hemoglobin 31.6 pg (27.0-35.0); Mean Corpuscular Volume 92.3 fL (81-100); NEUTROPHILS % (AUTO) 65.4 % (40-74); Platelet Count 258 bil/L (150-400)
[2017-03-10 16:57] LABS: TROPONIN T < 0.010 ug/L (0.0-0.011)
--- NOTE | 2017-03-10 17:19 | DRSVH ---
PROCEDURE: CT CHEST WITHOUT CONTRAST ([id number]) INDICATIONS: 56 year-old male with left chest pain after 5 foot fall. TECHNIQUE: Noncontrast 5 mm thick sections acquired from the pulmonary apices to the posterior costophrenic angl es. 7 mm thick coronal and sagittal MIP reformats were then acquired. For radiation dose reduction, the following was used: automated exposure control, adjustment of mA and/or kV according to patient size. COMPARISON: [facility], CR, XR CHEST 1VW (PORTABLE), 03/05/2017, 10:24. FINDINGS: Image quality: Excellent. Lungs and pleura: No acute air space opacities. No pleural effusions or pneumothorax. Central and peripheral airways are patent and normal in caliber. Mediastinum: Heart size is normal. No pericardial effusion. No mediastinal adenopathy by size crit eria. Thoracic aorta and central pulmonary arteries are normal in size. Esophagus is normal in josey leslie. No hiatal hernia. Bones and chest wall: No suspicious bony lesions. No vertebral body compression fractures. No axil camilo or supraclavicular adenopathy by size criteria. Thyroid gland contains a 1.6 cm hypodense lesio n in the right lobe. Abdomen: Visualized upper abdominal solid organs and bowel loops appear normal in the absence of con trast. IMPRESSION: 1. No traumatic injuries to the thorax after fall. 2. 1.6 cm indeterminate hypodense right thyroid nodule. Recommend further characterization with non-e mergent thyroid ultrasound, and correlation with thyroid function tests. Dictated by: Evin Avila M.D. on 03/10/2017 at 17:12 Approved by: Evin Avila M.D. on 03/10/2017 at 17:18
== END 2017-03-10 18:23 | disposition home or self-care (01) ==
LOC: SED 15:01
DX: R07.89 Other chest pain (principal); M79.662 Pain in left lower leg; R20.2 Paresthesia of skin; R53.1 Weakness; I10 Essential (primary) hypertension; G89.29 Other chronic pain; M54.9 Dorsalgia, unspecified; E78.5 Hyperlipidemia, unspecified; K21.9 Gastro-esophageal reflux disease without esophagitis; F17.200 Nicotine dependence, unspecified, uncomplicated; Z79.891 Long term (current) use of opiate analgesic

== ENCOUNTER 2017-03-16 12:32 | Emergency (ER) | payer MEDICARE, OTHER ==
[~2017-03-16] VITALS: Ht 180.3 cm; Wt 109.1 kg
[~2017-03-16 12:32] MED LIST changes: -NAPR500T5 PO; -OXYC1TAB24 PO
[2017-03-16 12:38] VITALS: BP 103/71; PULSE 65; RESP 16; O2SAT 98
--- NOTE | 2017-03-16 12:54 | ED.REPORT ---
HPI-Back Pain 40 and Over Date of Service Mar 16, 2017 ED Provider: Marlon Lopez MD Pt is a 57 y/o male w/ a hx of chronic back pain and sciatica with opiate dependence, presenting to the ED c/o chronic low back pain w/ radiation down the left leg for the past 18 years. He has a plan for back surgery. Pt denies fever, chills, dysuria, bowel or bladder incontinence, numbness/weakness/ tingling of his legs. He is here requesting pain medication to last him for the next 2 days before he can see his PCP. He was recently admitted to [facility] from March 05-2016 for non-cardiac chest pain and possible malingering. He was seen in the ED March 01 for similar back pain and was given a prescription for Percocet. Nursing Notes Stated Complaint: LOW BACK PAIN/NAUSEA Chief Complaint: Back Pain or Injury Nursing Notes Reviewed: Yes Allergies: Coded Allergies: No Known Allergies (Unverified , 03/16/17) Scheduled Bisoprolol Fumarate/HCTZ 10-6.25 mg (Bisoprolol Fumarate/HCTZ 10-6.25 mg) 1 Each Tablet PO DAILY Clonazepam (Clonazepam) 1 Mg Tablet 1 MG PO QID Clonidine (Clonidine) 0.1 Mg Tablet 0.1 MG PO HS Meloxicam (Meloxicam) 7.5 Mg Tablet 7.5 MG PO BID Omeprazole (Omeprazole) 40 Mg Capsule.dr 40 MG PO DAILY Sertraline HCl (Sertraline) 100 Mg Tablet 150 MG PO DAILY Scheduled PRN oxyCODONE-Acetaminophen 10-325 mg (oxyCODONE-Acetaminophen 10-325 mg) 1 Each Tablet 1 TABLET PO Q6H PRN PRN For Pain General Time Seen by MD: 12:47 Chief Complaint Back pain Hx Obtained From: Patient Arrived By: Walk-in Sudden in Onset?: No Onset Occurred: More than a week ago... (>6 months) Symptom Duration: Since onset Location: : Perispinal lumbar: Spinal lumbar area Quality: Painful Severity: Current: Moderate Severity: Maximum: Moderate Past Medical History Past Medical History Hypertension Hyperlipidemia GERD Anxiety Chronic back pain with sciatica (on opiates) Past Surgical History Bilateral inguinal hernia repair ~2000 Smoking History Current Every Day Smoker Social History Alcohol Use: Denies alcohol use Ambulatory Status Independent Review of Systems GI: Reports: Nausea, Denies: Abdominal pain Male: Denies Dysuria Musculoskeletal: Reports: Back pain Neurologic: Denies: Bladder dysfunction, Bowel dysfunction, Numbness, Weakness Complete sys rev & neg: except as marked. Physical Exam Initial Vital Signs Vital Signs (First) Date Time Temp Pulse Resp B/P Pulse Ox O2 Delivery O2 Flow Rate FiO2 03/16/17 12:38 36.0 65 16 103/71 98 Room Air Initial VS: Reviewed, Vital signs normal Head / Eyes: Atraumatic, Normocephalic ENT: Mucous membranes moist, Conjunctiva normal, No scleral icterus Neck: Supple, Full range of motion Extremities: Vascular intact, Neuro intact, No swelling Skin: Warm, Dry, No cyanosis Psychiatric: Mood/affect normal, Behavior normal, Normal thought content General/Constitutional: Awake, Alert, No acute distress, Cooperative, Not toxic appearing Appearance / Presentation: Negative: In pain Respiratory / Chest: Breath sounds NL, Breath sounds = bilat, No respiratory distress, No rales, No rhonchi, No wheezing Cardiovascular: Heart rate NL, Regular rhythm, Heart sounds NL, No murmurs Abdomen: Atraumatic, Soft, Non-tender Back: Full range of motion Diffuse low back tenderness Neurologic: Oriented X3, Speech NL, No motor deficits, No sensory deficits Re-Eval/Medical Decision Med Decision/Clinical Course 57-year-old male long history of chronic low back pain who is awaiting surgery for herniated disks presenting requesting a refill on his chronic narcotics. He has no recent trauma no acute changes no red flag symptoms. His neurological exam is normal. He has diffuse low back tenderness. I informed him that we do not refill chronic narcotics. He was not very happy about this. He is advised to follow-up with his back specialist on Tuesday as scheduled and with his primary doctor. I did offer him Toradol, NSAIDs, muscle relaxers all of which he declined. Counseled Regarding: Diagnosis, Need for follow-up, When/why to return to ED Discharge & Departure Impression: Primary Impression: Chronic back pain Back pain location: low back pain Back pain laterality: unspecified Sciatica presence: with sciatica Sciatica laterality: sciatica of left side Qualified Code: M54.42 - Lumbago with sciatica, left side Additional Impression: Sciatica of left side Disposition: Home Discharge Condition All VS Reviewed: Yes Condition: Stable Patient Instructions: Chronic Back Pain (ED) Additional Instructions: We are not able to provide narcotic pain medication for chronic conditions from the ER. You have declined Toradol, NSAIDs, and muscle relaxers. Return to the emergency department if you experience fever, bowel or bladder incontinence, change in numbness/weakness/tingling of your legs, or for other concerning symptoms. Follow-up with your primary care doctor as scheduled. Referrals: NOPCP (PCP) Scribe Attestation Portions of this note were transcribed by Michael Coleman. I, Dr. Lopez personally performed the history, physical exam and medical decision-making; I reviewed and confirmed the accuracy of the information in the transcribed note. Marlon Lopez MD Mar 16, 2017 12:54 MICHAEL COLEMAN Mar 16, 2017 13:05
== END 2017-03-16 13:38 | disposition home or self-care (01) ==
LOC: SED 12:32
DX: M54.42 Lumbago with sciatica, left side (principal); I10 Essential (primary) hypertension; E78.5 Hyperlipidemia, unspecified; K21.9 Gastro-esophageal reflux disease without esophagitis; F17.200 Nicotine dependence, unspecified, uncomplicated